=== PATIENT | male | born 1950 | race African-American/Black ===

== ENCOUNTER 2025-03-17 18:22 | Inpatient (IN) | payer MEDICARE, MEDICAID ==
[~2025-03-17] VITALS: Ht 190.5 cm; Wt 73.5 kg
[~2025-03-17 18:22] MED LIST: APIX5TAB MT; APIX5TAB PO; ASPI-1160 PO; ASPI-1406 PO; ATOR40TA70 PO; COR3 PO; FURO40TA5 PO; ISOS30TA91 PO; LIP40 PO; LOSA25TA26 MT; LOSA25TA26 PO; METO-396 PO; PANT40TA51 PO
[2025-03-17 18:23] VITALS: O2SAT 97
[2025-03-17 19:15] LABS: CLARITY URINE CLEAR (CLEAR); COLOR URINE YELLOW (YELLOW); GLUCOSE URINE NEGATIVE (NEGATIVE); KETONES URINE NEGATIVE (NEGATIVE); LEUKOCYTE ESTERASE URINE NEGATIVE (NEGATIVE); NITRITE URINE NEGATIVE (NEGATIVE); OCCULT BLOOD URINE NEGATIVE (NEGATIVE); PH URINE 6.0 (4.5-8.0); PROTEIN URINE NEGATIVE (NEGATIVE); SPECIFIC GRAVITY URINE 1.021 (1.005-1.030); UROBILINOGEN URINE 1.0 E.U./dL (0.2-1.0)
[2025-03-17 19:17] LABS: BASOPHILS % 0.8 % (0.0-2.0); EOSINOPHILS % 1.6 % (0.0-5.0); HEMATOCRIT. 41.5 % (42.0-52.0); HEMOGLOBIN. 13.8 g/dL (14.0-18.0); LYMPHOCYTES % 25.5 % (20.0-50.0); MEAN PLATELET VOLUME 7.5 fl (7.4-10.4); MONOCYTES % 11.3 % (2.0-8.0); NEUTROPHILS % 60.8 % (40.0-76.0); PLATELET 177 x1000/uL (130-400); RED BLOOD CELL COUNT 4.68 mill/uL (4.7-6.1); RED CELL DISTRIBUTION WIDTH 14.5 % (11.6-14.6)
[2025-03-17 19:18] LABS: *AMPHETAMINES SCREEN URINE NEGATIVE (NEGATIVE); *BARBITURATES SCREEN URINE NEGATIVE (NEGATIVE); *BENZODIAZEPINES SCREEN URINE NEGATIVE (NEGATIVE); *COCAINE SCREEN URINE NEGATIVE (NEGATIVE); METHADONE URINE SCREEN NEGATIVE (NEGATIVE); OPIATES URINE SCREEN NEGATIVE (NEGATIVE)
[2025-03-17 19:19] LABS: CANNABINOID URINE SCREEN NEGATIVE (NEGATIVE); ECSTASY MDMA SCREEN URINE NEGATIVE (NEGATIVE); PHENCYCLIDINE URINE SCREEN NEGATIVE (NEGATIVE)
[2025-03-17 19:29] LABS: CREATININE 1.1 mg/dL (0.6-1.3); UREA NITROGEN BLOOD 20 mg/dL (9-23)
[2025-03-17 19:30] LABS: ETHANOL BLOOD < 10 mg/dL (<10)
[2025-03-17 19:31] LABS: ASPARTATE AMINOTRANSFERASE 20 IU/L (<34); TROPONIN I HIGH SENSITIVITY 548 ng/L (3.0-53)
[2025-03-17 19:32] LABS: BILIRUBIN DIRECT 0.2 mg/dL (<=3.0); BILIRUBIN TOTAL 0.6 mg/dL (0.1-1.0); PROTEIN TOTAL 7.5 g/dL (6.0-8.3)
[2025-03-17 21:29] LABS: TROPONIN I HIGH SENSITIVITY 626 ng/L (3.0-53)
[2025-03-17] MEDS ORDERED: HEPARIN 25,000 UNITS PREMIX 250 ML IV PRN (22:30)
[2025-03-17] MEDS ORDERED: HEPARIN 5000 UNITS/ML VIAL IV SCH (22:30)
[2025-03-17] MEDS ORDERED: HEPARIN 5000 UNITS/ML VIAL IV PRN ×2 (22:30)
[2025-03-18] VITALS: BP 125/68; PULSE 54; RESP 18; TEMP 36.4; O2SAT 96
[2025-03-18] MEDS: HEPARIN 60 UNITS/KG BOLUS IV SCH (04:30)
[2025-03-18 04:35] LABS: HEMOGLOBIN. 13.1 g/dL (14.0-18.0); NEUTROPHILS % 55.7 % (40.0-76.0); RED CELL DISTRIBUTION WIDTH 14.5 % (11.6-14.6)
[2025-03-18 04:39] LABS: BASOPHILS % 0.8 % (0.0-2.0); EOSINOPHILS % 1.3 % (0.0-5.0); HEMATOCRIT. 39.9 % (42.0-52.0); LYMPHOCYTES % 30.3 % (20.0-50.0); MEAN PLATELET VOLUME 7.7 fl (7.4-10.4); MONOCYTES % 11.9 % (2.0-8.0); PLATELET 176 x1000/uL (130-400); RED BLOOD CELL COUNT 4.50 mill/uL (4.7-6.1)
[2025-03-18 04:40] LABS: CREATININE 1.2 mg/dL (0.6-1.3); TRIGLYCERIDE 78 mg/dL (0-150); UREA NITROGEN BLOOD 30 mg/dL (9-23)
[2025-03-18 04:41] LABS: LDL CHOLESTEROL 58 mg/dL (5-100)
[2025-03-18 04:47] LABS: TROPONIN I HIGH SENSITIVITY 627 ng/L (3.0-53)
[2025-03-18] MEDS: HEPARIN 25,000 UNITS PREMIX 250 ML IV SCH (05:04)
[2025-03-18 05:57] VITALS: BP 125/68; PULSE 70; RESP 18; TEMP 36.4736
[2025-03-18] MEDS ORDERED: DEXTROSE 50% WATER 50ML SYRINGE IV PRN (06:45)
[2025-03-18] MEDS: INSULIN LISPRO 100 UNITS/ML SUBCUT SCH (07:15)
[2025-03-18] MEDS: BLOOD SUGAR DIAGNOSTIC STRIP TEST SCH (07:25)
[2025-03-18] MEDS: PANTOPRAZOLE 40MG DR TABLET PO SCH (07:39)
[2025-03-18 08:00] VITALS: BP 122/76; PULSE 60; RESP 15; TEMP 36.5; O2SAT 98
[2025-03-18] MEDS: CARVEDILOL 3.125 MG TABLET PO SCH (08:56)
[2025-03-18] MEDS: ISOSORBIDE MONONITRATE 30MG TABLET SR 24HR PO SCH (08:57)
[2025-03-18] MEDS ORDERED: HEPARIN BOLUS PRN aPTT <30 IV (09:30)
[2025-03-18] MEDS ORDERED: HEPARIN BOLUS PRN aPTT 30-44 IV (09:30)
[2025-03-18 12:00] VITALS: BP 98/69; PULSE 59; RESP 18; TEMP 36.4; O2SAT 100
[2025-03-18] MEDS: FUROSEMIDE 40MG TABLET PO SCH (12:49)
[2025-03-18 16:00] VITALS: BP 101/63; PULSE 60; RESP 18; TEMP 37.2; O2SAT 99
[2025-03-18 20:00] VITALS: BP 138/81; PULSE 60; RESP 17; TEMP 36.3; O2SAT 100
[2025-03-18] MEDS: APIXABAN 5 MG TABLET PO SCH (21:18)
[2025-03-18] MEDS: ATORVASTATIN CALCIUM 40MG TABLET PO SCH (21:19)
[2025-03-19] VITALS: BP 126/80; PULSE 81; RESP 17; TEMP 36.3; O2SAT 98
[2025-03-19 04:00] VITALS: BP 137/75; PULSE 73; RESP 17; TEMP 36.8; O2SAT 100
[2025-03-19 08:00] VITALS: BP 125/71; PULSE 60; RESP 18; TEMP 36; O2SAT 99
[2025-03-19] MEDS: LOSARTAN 25 MG TABLET PO SCH (10:32)
[2025-03-19 12:00] VITALS: BP 105/65; PULSE 59; RESP 18; TEMP 36.4; O2SAT 98
[2025-03-19 16:00] VITALS: BP 91/53; PULSE 59; RESP 18; TEMP 36.4; O2SAT 95
[2025-03-19 20:00] VITALS: BP 131/62; PULSE 60; RESP 17; TEMP 35.9; O2SAT 96
[2025-03-19] MEDS: FAMOTIDINE 20MG TABLET PO SCH (21:10)
[2025-03-20] VITALS: BP 109/65; PULSE 63; RESP 17; TEMP 36.3; O2SAT 98
[2025-03-20 04:00] VITALS: BP 107/64; PULSE 60; RESP 15; TEMP 36.7; O2SAT 98
[2025-03-20 08:00] VITALS: BP 117/70; PULSE 66; RESP 17; TEMP 36.1; O2SAT 100
[2025-03-20 12:00] VITALS: BP 78/49; PULSE 59; RESP 16; TEMP 37.2
[2025-03-20 16:00] VITALS: BP 113/61; PULSE 62; RESP 17; TEMP 36.4; O2SAT 100
[2025-03-20 20:00] VITALS: BP 136/80; PULSE 60; RESP 18; TEMP 36.2; O2SAT 98
[2025-03-20] MEDS: ZOLPIDEM TARTRATE 5MG TABLET PO PRN (22:28)
[2025-03-21] VITALS: BP 129/91; PULSE 62; RESP 18; TEMP 36.6; O2SAT 96
[2025-03-21 04:00] VITALS: BP 110/59; PULSE 59; RESP 18; TEMP 36.6; O2SAT 98
[2025-03-21 12:00] VITALS: BP 98/61; PULSE 59; RESP 18; TEMP 36.4; O2SAT 99
[2025-03-21 16:00] VITALS: O2SAT 0
[2025-03-21 20:00] VITALS: BP 112/58; PULSE 60; RESP 18; TEMP 36.6; O2SAT 98
[2025-03-22] VITALS: BP 145/85; PULSE 75; RESP 18; TEMP 36.7; O2SAT 99
[2025-03-22 04:00] VITALS: BP 102/50; PULSE 60; RESP 18; TEMP 36.3; O2SAT 98
[2025-03-22 08:00] VITALS: BP 122/74; PULSE 59; RESP 18; TEMP 36.7; O2SAT 100
[2025-03-22 12:00] VITALS: BP 98/51; PULSE 59; RESP 18; TEMP 36.4; O2SAT 99
[2025-03-22 16:00] VITALS: BP 124/81; PULSE 60; RESP 18; TEMP 36.7; O2SAT 99
[2025-03-22 16:22] VITALS: BP 124/81; PULSE 60; RESP 18; TEMP 98
== END 2025-03-22 21:58 | DRG 280 ==
LOC: ER 18:22 → 5WST 22:27 → EDBEDREQTM 22:34 → EDBEDREQ 22:34 → ENRESERV 22:45 → 7EST 03-19 18:18
PROVIDERS: ADMIT Internal Medicine; ATTEND Internal Medicine
DX: I11.0 Hypertensive heart disease with heart failure (principal); I50.23 Acute on chronic systolic (congestive) heart failure; I21.A1 Myocardial infarction type 2; G45.9 Transient cerebral ischemic attack, unspecified; I48.19 Other persistent atrial fibrillation; I48.92 Unspecified atrial flutter; I69.351 Hemiplegia and hemiparesis following cerebral infarction affecting right dominant side; R62.7 Adult failure to thrive; E11.9 Type 2 diabetes mellitus without complications; F17.210 Nicotine dependence, cigarettes, uncomplicated; Z95.0 Presence of cardiac pacemaker; Z79.01 Long term (current) use of anticoagulants; Z79.82 Long term (current) use of aspirin; Z79.899 Other long term (current) drug therapy; Z68.20 Body mass index [BMI] 20.0-20.9, adult
CPT/HCPCS: 36415; 71045; 80048; 80061; 80076; 80305; 80320; 81003; 82962; 83036; 84484; 85025; 93005; 97110; 97116; 97162; 99291; A4606; J1644; G0480

== ENCOUNTER 2025-06-30 13:18 | Inpatient (IN) | payer MEDICAID, MEDICARE ==
[~2025-06-30] VITALS: Ht 177.8 cm; Wt 80.7 kg
[~2025-06-30 13:18] MED LIST changes: -APIX5TAB PO; -ASPI-1406 PO; +FURO-151 PO; -FURO40TA5 PO; -ISOS30TA91 PO; -LIP40 PO; -LOSA25TA26 PO; -METO-396 PO; +PANT20TA17 PO; -PANT40TA51 PO; +SPIR25TA6 PO
[2025-06-30 13:19] VITALS: O2SAT 100
[2025-06-30] MEDS: IOHEXOL-350 100 ML BOTTLE ONE (13:47)
[2025-06-30] MEDS: DEXTROSE 50% WATER 50ML SYRINGE IV ONE (14:23)
[2025-06-30 14:52] LABS: BASOPHILS % 0.4 % (0.0-2.0); EOSINOPHILS % 0.7 % (0.0-5.0); HEMATOCRIT. 36.9 % (42.0-52.0); HEMOGLOBIN. 11.9 g/dL (14.0-18.0); LYMPHOCYTES % 19.4 % (20.0-50.0); MEAN PLATELET VOLUME 7.4 fl (7.4-10.4); MONOCYTES % 10.9 % (2.0-8.0); NEUTROPHILS % 68.6 % (40.0-76.0); PLATELET 165 x1000/uL (130-400); RED BLOOD CELL COUNT 4.13 mill/uL (4.7-6.1); RED CELL DISTRIBUTION WIDTH 16.2 % (11.6-14.6)
[2025-06-30 15:03] LABS: INR 1.1
[2025-06-30 15:06] LABS: CREATININE 1.2 mg/dL (0.6-1.3); UREA NITROGEN BLOOD 15 mg/dL (9-23)
[2025-06-30 15:08] LABS: ASPARTATE AMINOTRANSFERASE 20 IU/L (<34); BILIRUBIN DIRECT 0.3 mg/dL (<=3.0); BILIRUBIN TOTAL 0.6 mg/dL (0.1-1.0); PROTEIN TOTAL 6.9 g/dL (6.0-8.3)
[2025-06-30 15:17] LABS: TROPONIN I HIGH SENSITIVITY 570 ng/L (3.0-53)
[2025-06-30 15:31] LABS: CLARITY URINE CLEAR (CLEAR); COLOR URINE YELLOW (YELLOW); GLUCOSE URINE 2+ (NEGATIVE); KETONES URINE NEGATIVE (NEGATIVE); LEUKOCYTE ESTERASE URINE NEGATIVE (NEGATIVE); NITRITE URINE NEGATIVE (NEGATIVE); OCCULT BLOOD URINE NEGATIVE (NEGATIVE); PH URINE 5.5 (4.5-8.0); PROTEIN URINE NEGATIVE (NEGATIVE); SPECIFIC GRAVITY URINE 1.017 (1.005-1.030); UROBILINOGEN URINE 0.2 E.U./dL (0.2-1.0)
[2025-06-30 15:44] LABS: *AMPHETAMINES SCREEN URINE NEGATIVE (NEGATIVE); *BARBITURATES SCREEN URINE NEGATIVE (NEGATIVE); *BENZODIAZEPINES SCREEN URINE NEGATIVE (NEGATIVE); *COCAINE SCREEN URINE NEGATIVE (NEGATIVE); CANNABINOID URINE SCREEN NEGATIVE (NEGATIVE); ECSTASY MDMA SCREEN URINE NEGATIVE (NEGATIVE); METHADONE URINE SCREEN NEGATIVE (NEGATIVE); OPIATES URINE SCREEN NEGATIVE (NEGATIVE); PHENCYCLIDINE URINE SCREEN NEGATIVE (NEGATIVE)
[2025-06-30 16:12] LABS: BACTERIA URINE TRACE
[2025-06-30 16:13] LABS: RBC URINE NONE SEEN /hpf (0-2); SQUAMOUS EPITHELIAL CELL URINE RARE /lpf (RARE/1+); WBC URINE 0-2 /hpf (0-2)
[2025-06-30] MEDS: ASPIRIN 325MG EC TABLET PO SCH (17:22)
[2025-06-30 19:00] VITALS: BP_SYST 152; BP_SYST 153; BP_DIAS 81; BP_DIAS 83; PULSE 60; RESP 16; TEMP 36.8628; TEMP 36.974
[2025-06-30] MEDS ORDERED: NALOXONE HCL 0.4MG/ML VIAL IV PRN (19:30)
[2025-06-30] MEDS ORDERED: ACETAMINOPHEN 325MG TABLET PO PRN (19:30)
[2025-06-30] MEDS ORDERED: ONDANSETRON HCL 4MG/2ML INJ IV PRN (19:30)
[2025-06-30] MEDS ORDERED: ZOLPIDEM TARTRATE 5MG TABLET PO PRN (19:30)
[2025-06-30] MEDS ORDERED: CLONIDINE 0.1MG TABLET PO PRN (19:30)
[2025-06-30] MEDS ORDERED: DEXTROSE 50% WATER 50ML SYRINGE IV PRN (19:30)
[2025-06-30] MEDS ORDERED: MAGNESIUM/ALUMINUM HYDROXIDE/SIMETHICONE 30ML UDC PO PRN (19:30)
[2025-06-30] MEDS ORDERED: MORPHINE SULFATE 4 MG/ML INJ (FOR IV/IM USE) IV PRN (19:30)
[2025-06-30 20:00] VITALS: BP_SYST 100; BP_SYST 135; BP_DIAS 54; BP_DIAS 81; PULSE 60; RESP 17; TEMP 36.6; O2SAT 97
[2025-06-30] MEDS: INSULIN LISPRO 100 UNITS/ML SUBCUT SCH (21:00)
[2025-06-30] MEDS: BLOOD SUGAR DIAGNOSTIC STRIP TEST SCH (21:00)
[2025-06-30] MEDS: ATORVASTATIN CALCIUM 40MG TABLET PO SCH (22:02)
[2025-06-30] MEDS: ENOXAPARIN 40MG/0.4ML SYR SUBCUT SCH (22:02)
[2025-07-01] VITALS: BP 94/51; PULSE 60; RESP 18; TEMP 36.1; O2SAT 100
[2025-07-01 04:00] VITALS: BP 110/55; PULSE 60; RESP 17; TEMP 36.6; O2SAT 99
[2025-07-01 06:32] LABS: BASOPHILS % 0.3 % (0.0-2.0); EOSINOPHILS % 1.1 % (0.0-5.0); HEMATOCRIT. 38.1 % (42.0-52.0); HEMOGLOBIN. 12.6 g/dL (14.0-18.0); LYMPHOCYTES % 25.8 % (20.0-50.0); MEAN PLATELET VOLUME 7.9 fl (7.4-10.4); MONOCYTES % 13.3 % (2.0-8.0); NEUTROPHILS % 59.5 % (40.0-76.0); PLATELET 153 x1000/uL (130-400); RED BLOOD CELL COUNT 4.33 mill/uL (4.7-6.1); RED CELL DISTRIBUTION WIDTH 15.9 % (11.6-14.6)
[2025-07-01 06:46] LABS: CREATININE 1.2 mg/dL (0.6-1.3); TRIGLYCERIDE 64 mg/dL (0-150); UREA NITROGEN BLOOD 21 mg/dL (9-23)
[2025-07-01 06:47] LABS: LDL CHOLESTEROL 38 mg/dL (5-100)
[2025-07-01 06:49] LABS: TROPONIN I HIGH SENSITIVITY 555 ng/L (3.0-53)
[2025-07-01] MEDS: PANTOPRAZOLE SODIUM 40 MG/VIAL IV SCH (08:30)
[2025-07-01] MEDS: ASPIRIN 81MG EC TABLET PO SCH (08:31)
[2025-07-01] MEDS: CLOPIDOGREL 75MG TABLET PO SCH (08:31)
[2025-07-01 12:00] VITALS: BP 140/71; PULSE 62; RESP 18; TEMP 36.6; O2SAT 100
[2025-07-01 12:10] VITALS: BP 128/72; PULSE 60; RESP 18; TEMP 36.6; O2SAT 98
[2025-07-01 16:30] VITALS: BP 128/76; PULSE 60; RESP 20; TEMP 36.6; O2SAT 98
[2025-07-01 20:00] VITALS: BP 111/55; PULSE 63; RESP 18; TEMP 36.4; O2SAT 99
[2025-07-02] VITALS: BP 108/58; PULSE 60; RESP 17; TEMP 36.5; O2SAT 99
[2025-07-02 04:00] VITALS: BP 111/55; PULSE 57; RESP 18; TEMP 36.6; O2SAT 99
[2025-07-02 08:00] VITALS: BP 146/63; PULSE 61; RESP 20; TEMP 36.7; O2SAT 99
[2025-07-02 12:00] VITALS: BP 128/67; PULSE 60; RESP 20; TEMP 37; O2SAT 98
[2025-07-02 16:00] VITALS: BP 141/85; PULSE 61; RESP 20; TEMP 36.8; O2SAT 100
[2025-07-02] MEDS: APIXABAN 5 MG TABLET PO SCH (17:38)
[2025-07-02 20:00] VITALS: BP 119/65; PULSE 65; RESP 18; TEMP 36.6; O2SAT 97
[2025-07-03] VITALS: BP 114/65; PULSE 65; RESP 18; TEMP 36.2; O2SAT 97
[2025-07-03 04:00] VITALS: BP 100/53; PULSE 60; RESP 18; TEMP 36.2; O2SAT 98
[2025-07-03 08:00] VITALS: BP 138/73; PULSE 65; RESP 20; TEMP 37; O2SAT 100
[2025-07-03 08:37] LABS: HEMATOCRIT. 40.1 % (42.0-52.0); HEMOGLOBIN. 13.1 g/dL (14.0-18.0); MEAN PLATELET VOLUME 7.4 fl (7.4-10.4); PLATELET 169 x1000/uL (130-400); RED BLOOD CELL COUNT 4.56 mill/uL (4.7-6.1); RED CELL DISTRIBUTION WIDTH 15.5 % (11.6-14.6)
[2025-07-03 09:06] LABS: CREATININE 1.1 mg/dL (0.6-1.3)
[2025-07-03 09:07] LABS: UREA NITROGEN BLOOD 16 mg/dL (9-23)
[2025-07-03 11:51] LABS: EOSINOPHILS % MANUAL 2.0 % (0.0-5.0); LYMPHOCYTES % MANUAL 26.0 % (20.0-50.0); MONOCYTES % MANUAL 21.0 % (2.0-8.0); NEUTROPHILS % MANUAL 51.0 % (45.0-75.0)
[2025-07-03 11:52] LABS: PLATELET ESTIMATE NORMAL
[2025-07-03 12:00] VITALS: BP 108/81; PULSE 62; RESP 18; TEMP 36.5; O2SAT 96
[2025-07-03 16:00] VITALS: BP 134/84; PULSE 72; RESP 18; TEMP 36.5; O2SAT 98
[2025-07-03 20:00] VITALS: BP 126/67; PULSE 68; RESP 18; TEMP 36.7; O2SAT 98
[2025-07-04] VITALS: BP 155/59; PULSE 69; RESP 18; TEMP 36.3; O2SAT 97
[2025-07-04 04:00] VITALS: BP 150/60; RESP 18; TEMP 36.7; O2SAT 98
[2025-07-04 08:00] VITALS: BP 100/47; PULSE 59; RESP 18; TEMP 36.5; O2SAT 99
[2025-07-04] MEDS: HYDROCODONE/ACETAMINOPHEN 5/325MG TABLET PO PRN (09:43)
[2025-07-04 12:00] VITALS: BP 145/61; PULSE 64; RESP 18; TEMP 36.2; O2SAT 98
[2025-07-04 16:00] VITALS: BP 123/71; PULSE 62; RESP 18; TEMP 35.7; O2SAT 98
[2025-07-04 20:00] VITALS: BP 131/69; PULSE 59; RESP 20; TEMP 36.3; O2SAT 98
[2025-07-05] VITALS: BP 122/75; PULSE 59; RESP 20; TEMP 36.7; O2SAT 100
[2025-07-05 04:00] VITALS: BP 127/71; PULSE 61; RESP 18; TEMP 36.8; O2SAT 97
[2025-07-05 08:00] VITALS: BP 108/58; PULSE 60; RESP 18; TEMP 36.5; O2SAT 98
[2025-07-05 12:00] VITALS: BP 101/62; PULSE 67; RESP 18; TEMP 36.6; O2SAT 98
[2025-07-05 16:00] VITALS: BP 102/50; PULSE 71; RESP 18; TEMP 36.7; O2SAT 96
[2025-07-05 20:00] VITALS: BP 140/80; PULSE 75; RESP 20; TEMP 36.2; O2SAT 95
[2025-07-06] VITALS: BP 133/81; PULSE 76; RESP 18; TEMP 36.7; O2SAT 96
[2025-07-06 04:00] VITALS: BP 135/78; PULSE 63; RESP 20; TEMP 36.7; O2SAT 97
[2025-07-06 08:00] VITALS: BP 134/71; PULSE 72; RESP 18; TEMP 36.9; O2SAT 98
[2025-07-06 12:00] VITALS: BP 130/67; PULSE 61; RESP 18; TEMP 36.3; O2SAT 97
[2025-07-06 16:00] VITALS: BP 135/68; PULSE 69; RESP 17; TEMP 36.7; O2SAT 99
[2025-07-06 20:00] VITALS: BP 97/69; PULSE 73; RESP 20; TEMP 36.6; O2SAT 97
[2025-07-07] VITALS: BP 126/79; PULSE 75; RESP 19; TEMP 36.7; O2SAT 100
[2025-07-07 04:00] VITALS: BP 105/52; PULSE 60; RESP 20; TEMP 36.7; O2SAT 94
[2025-07-07 08:00] VITALS: BP 107/52; PULSE 62; RESP 18; TEMP 36.5; O2SAT 98
[2025-07-07] MEDS: PANTOPRAZOLE 40MG DR TABLET PO SCH (11:49)
[2025-07-07 12:00] VITALS: BP 138/66; PULSE 71; RESP 18; TEMP 36.5; O2SAT 98
[2025-07-07 16:00] VITALS: BP 101/78; PULSE 66; RESP 18; TEMP 36.5; O2SAT 98
[2025-07-07 20:00] VITALS: BP 121/73; PULSE 71; RESP 20; TEMP 36.7; O2SAT 98
[2025-07-08] VITALS: BP 124/65; PULSE 60; RESP 20; TEMP 36.7; O2SAT 97
[2025-07-08 04:00] VITALS: BP 109/60; PULSE 64; RESP 18; TEMP 36.7; O2SAT 95
[2025-07-08 08:00] VITALS: BP 114/67; PULSE 62; RESP 18; TEMP 36.5; O2SAT 100
[2025-07-08 12:00] VITALS: BP 114/79; PULSE 79; RESP 18; TEMP 36.6; O2SAT 100
[2025-07-08 20:00] VITALS: BP 125/76; PULSE 64; RESP 18; TEMP 36.6; O2SAT 99
[2025-07-09] VITALS: BP 132/82; PULSE 70; RESP 18; TEMP 36.6; O2SAT 98
[2025-07-09 04:00] VITALS: BP 112/42; PULSE 59; RESP 18; TEMP 36.6; O2SAT 99
[2025-07-09 08:00] VITALS: BP 110/70; PULSE 70; RESP 18; TEMP 35.7; O2SAT 100
[2025-07-09 12:12] VITALS: BP 133/70; PULSE 80; RESP 20; TEMP 98.2
== END 2025-07-09 12:15 | disposition home or self-care (01) | DRG 73 ==
LOC: ER 13:38 → EDBEDREQTM 17:10 → EDBEDREQ 17:10 → 8WST 18:18
PROVIDERS: ADMIT Internal Medicine; ATTEND Internal Medicine
DX: G90.89 Other disorders of autonomic nervous system (principal); I21.A1 Myocardial infarction type 2; I50.23 Acute on chronic systolic (congestive) heart failure; I48.92 Unspecified atrial flutter; I11.0 Hypertensive heart disease with heart failure; N39.0 Urinary tract infection, site not specified; Z79.01 Long term (current) use of anticoagulants; E11.9 Type 2 diabetes mellitus without complications; I69.354 Hemiplegia and hemiparesis following cerebral infarction affecting left non-dominant side; R47.81 Slurred speech; I48.91 Unspecified atrial fibrillation; I25.10 Atherosclerotic heart disease of native coronary artery without angina pectoris; E78.5 Hyperlipidemia, unspecified; Z95.0 Presence of cardiac pacemaker; I25.2 Old myocardial infarction; Z95.5 Presence of coronary angioplasty implant and graft
CPT/HCPCS: 36415; 70496; 70498; 70551; 71045; 80048; 80061; 80076; 80305; 80320; 81003; 82962; 83036; 84443; 84484; 85025; 92610; 93005; 93306; 93970; 97166; 99285; J1650; J2470; Q9967; G0480